=== PATIENT | female | born 1965 | race Caucasian/White ===

== ENCOUNTER 2017-08-20 10:50 | Outpatient (CLI) | payer SELFPAY ==
[2013-09-22 12:49] VITALS: BP 137/84
== END 2017-08-20 10:52 ==
LOC: LABRHC 10:50
PROVIDERS: ATTEND Physician Assistant
DX: L02.91 Cutaneous abscess, unspecified (principal)
CPT/HCPCS: 87070

== ENCOUNTER 2018-03-16 10:01 | Emergency (ER) | payer SELFPAY ==
[2018-03-16 10:12] VITALS: BP 130/74
--- NOTE | 2018-03-16 10:15 | ED Physician Documentation ---
General Adult - HISTORIAN Historian: patient - HPI Stated Complaint: right ear pain Chief Complaint: General Adult Onset: days ago (7) Timing: still present Severity: moderate Further Comments: yes (Pt is a 52 yo female with R ear pain x 7 days. Pt has had a mild sore throat and slight cough.) - ROS CONST: no problems EYES/ENT: sore throat, other (R ear pain) GI/: none - PAST HX Past History: other (hysterectomy) Allergies/Adverse Reactions: Allergies Allergy/AdvReac Type Severity Reaction Status Date / Time Penicillins Allergy Intermediate Hives Verified 03/16/18 10:12 Home Medications: Ambulatory Orders Medication Instructions Recorded Cephalexin [Keflex] 500 mg PO Q8H #30 capsule 03/16/18 - SOCIAL HX Smoking History: cigarettes - FAMILY HX Family History: Yes - VITAL SIGNS Vital Signs: Vital Signs Temp Pulse Resp BP Pulse Ox 98 F 84 16 130/74 97 03/16/18 10:08 03/16/18 10:08 03/16/18 10:08 03/16/18 10:08 03/16/18 10:08 - REVIEWED ASSESSMENTS Nursing Assessment Reviewed: Yes Vitals Reviewed: Yes Progress - Progress Progress: Rx Keflex 500 mg. Take one by mouth every 8 hrs for 10 days. [Pt has a PCN allergy, but has taken Keflex in the past.] General Adult Physical Exam - PHYSICAL EXAM GENERAL APPEARANCE: no distress EENT: pharynx normal, TM erythema (R) NECK: normal inspection, supple, lymphadenopathy RESPIRATORY: no resp distress, chest non-tender, breath sounds normal CVS: reg rate & rhythm, heart sounds normal ABDOMEN: soft, no organomegaly, normal bowel sounds BACK: normal inspection, no CVA tenderness SKIN: warm/dry, normal color EXTREMITIES: non-tender, normal range of motion, no evidence of injury NEURO: oriented X3, motor nml, sensation nml Discharge Clincal Impression: Right ear pain Prescriptions: Cephalexin [Keflex] 500 mg PO Q8H #30 capsule Referrals: Sara Garza MD [Primary Care Provider] - Condition: Good Disposition: 01 HOME, SELF-CARE Decision to Admit: NO Decision Time: 10:16
== END 2018-03-16 10:26 | disposition home or self-care (01) ==
LOC: ED 10:01
DX: H92.01 Otalgia, right ear (principal)
CPT/HCPCS: 99282